=== PATIENT | male | born 1970 | race Caucasian/White ===

== ENCOUNTER 2024-04-23 21:03 | Emergency (ER) | payer MEDICAID, MEDICARE ==
[~2024-04-23] VITALS: Ht 172.7 cm; Wt 54.5 kg
[~2024-04-23 21:03] MED LIST: FAMO20TA8 PO; WALKERFR
[2024-04-23 21:56] LABS: BASOPHILS % (AUTO) 0.7 % (0-1); EOSINOPHILS # (AUTO) 0.1 X10'3 (0-0.9); EOSINOPHILS % (AUTO) 2.5 % (0-6); HEMATOCRIT 41.7 % (42.0-52.0); LYMPHOCYTES # (AUTO) 2.1 X10'3 (1.1-4.8); LYMPHOCYTES % (AUTO) 34.5 % (21-51); MEAN CORPUSCULAR HGB CONC 33.6 g/dL (33.0-36.5); MEAN CORPUSCULAR VOLUME 92.1 FL (78-98); MEAN PLATELET VOLUME 7.7 FL (7.4-10.4); MONOCYTES # (AUTO) 0.5 X10'3 (0-0.9); MONOCYTES % (AUTO) 8.2 % (2-12); NEUTROPHILS # (AUTO) 3.2 X10'3 (1.8-7.7); NEUTROPHILS % (AUTO) 54.1 % (42-75); PLATELET COUNT 304 X10'3 (140-440); RED BLOOD COUNT 4.53 X10'6 (4.70-6.10); RED CELL DISTRIBUTION WIDTH 13.4 % (11.5-14.5)
[2024-04-23] MEDS: normal saline 1000ml 1,000 ML IV ONE ×2 (22:00→23:48)
[2024-04-23 22:03] LABS: ALANINE AMINOTRANSFERASE 22 U/L (12-78); ALKALINE PHOSPHATASE 67 IU/L (46-116); ANION GAP 6 (8-16); ASPARTATE AMINO TRANSFERASE 24 U/L (10-37); BILIRUBIN,TOTAL 0.3 MG/DL (0.1-1.0); BLOOD UREA NITROGEN 26 MG/DL (7-18); BUN/CREATININE RATIO 22.8 (10.0-20.0); CALCIUM 9.2 MG/DL (8.5-10.1); CHLORIDE 102 MMOL/L (99-107); CREATININE 1.14 MG/DL (0.60-1.10); GLUCOSE 91 MG/DL (70-104); POTASSIUM 4.3 MMOL/L (3.5-5.1); SODIUM 138 MMOL/L (135-145); TOTAL CARBON DIOXIDE 30.1 MMOL/L (24-32); eCRCL 57 ML/MIN; eGFR 67 ML/MIN
[2024-04-23] MEDS: morphine 2 MG/ML inj. syringe IV ONE (22:30)
[2024-04-24 00:39] LABS: BILIRUBIN,URINE NEGATIVE (Neg); CLARITY,URINE CLEAR (Clear); COLOR,URINE YELLOW (Yellow); GLUCOSE, URINE NEGATIVE (Neg); KETONES,URINE NEGATIVE (Neg); LEUKOCYTE ESTERASE ,URINE NEGATIVE (Neg); NITRITES, URINE NEGATIVE (Neg); OCCULT BLOOD,URINE TRACE-INTACT (Neg); PH,URINE 7.5 (4.8-8.0); PROTEIN,URINE NEGATIVE (Neg); UROBILINOGEN,URINE 0.2 E.U/dL (0.2-1.0)
[2024-04-24 00:55] LABS: UA COLLECTION TYPE FOLEY CATH
[2024-04-24 00:56] LABS: BACTERIA,URINE NONE SEEN /HPF (Neg); MUCUS STRANDS NONE SEEN /LPF (Neg); SQUAMOUS EPITHELIAL CELL,UR FEW /LPF (FEW); WBC,URINE 0-4 /HPF (0-4)
[2024-04-24 01:28] VITALS: RESP 16
[2024-04-24] MEDS ORDERED: CEPH500C3 PO (01:30)
[2024-04-24] MEDS: cephalexin 250mg capsule PO ONE (01:50)
[2024-04-24 01:55] VITALS: BP 105/56; PULSE 88; TEMP 98; O2SAT 98
== END 2024-04-24 01:57 | disposition home or self-care (01) ==
LOC: ER 21:04
DX: L03.116 Cellulitis of left lower limb (principal); L03.115 Cellulitis of right lower limb; G80.9 Cerebral palsy, unspecified; Z79.899 Other long term (current) drug therapy
CPT/HCPCS: 36415; 80053; 81001; 85025; 96361; 96374; 99285; C1758; J2270; J7030